=== PATIENT | female | born 1975 | race African-American/Black ===

== ENCOUNTER 2023-12-09 04:41 | Day surgery (SDC) | payer OTHER ==
[2023-12-07 15:08] VITALS: BMI 59.6
[2023-12-09] MEDS ORDERED: MIDAZOLAM HCL 2 MG/2 ML SINGLE DOSE VIAL ONE (08:39)
[2023-12-09] MEDS ORDERED: KETAMINE HCL 200 MG/20 ML VIAL ONE (08:39)
[2023-12-09 09:11] VITALS: TEMP 97.7
[2023-12-09 09:26] VITALS: RESP 18
[2023-12-09 10:45] VITALS: BP 124/74; PULSE 63
== END 2023-12-09 10:09 | disposition home or self-care (01) ==
LOC: JASU-ENDO 04:41
PROVIDERS: ATTEND Student in an Organized Health Care Education/Training Program
PROC: 0DB68ZX Excision of Stomach, Via Natural or Artificial Opening Endoscopic, Diagnostic (ICD-10-PCS; principal; 2023-12-09 08:30)
DX: K29.50 Unspecified chronic gastritis without bleeding (principal)
CPT/HCPCS: 81025; 88305-TC; 88342-TC